=== PATIENT | female | born 1980 | race Caucasian/White ===

== ENCOUNTER 2017-08-20 16:51 | Inpatient (IN) | payer BC ==
[2017-08-20] MEDS ORDERED: Misoprostol 200 MCG TAB PR PRN (17:11)
[2017-08-20] MEDS ORDERED: Promethazine HCl 25 MG/ML VIAL IM PRN (17:11)
[2017-08-20] MEDS ORDERED: Ondansetron HCl/PF 4 MG/2 ML Vial IVP PRN (17:11)
[2017-08-20] MEDS ORDERED: Carboprost 250 MCG/ML AMP IM PRN (17:11)
[2017-08-20] MEDS ORDERED: Penicillin G Potassium 5 MILL.UNITS in Sodium Chloride 0.9% 100 ML IVPB STA (17:11)
[2017-08-20] MEDS ORDERED: Methylergonovine 0.2 MG/ML VIAL IM PRN (17:11)
[2017-08-20] MEDS ORDERED: Lidocaine 1% (PF) 30 ML VIAL SC PRN (17:11)
[2017-08-20] MEDS ORDERED: Diphenoxylate HCl/Atropine Tablet PO PRN ×2 (17:11)
[2017-08-20] MEDS ORDERED: HYDROcodone/Acetaminophen 5/325 mg Tablet PO PRN ×2 (17:11)
[2017-08-20] MEDS ORDERED: Ibuprofen 800 MG TAB PO PRN (17:11)
[2017-08-20 17:16] VITALS: BMI 26.6
[2017-08-20 17:43] LABS: Hemoglobin 13.1 g/dL (12.0-16.0); Mean Corpuscular HGB CONC 34.2 g/dL (32.0-36.0); Mean Corpuscular Volume 96.7 fl (81.0-99.0); Mean Platelet Volume 9.9 fL (7.4-10.4); Platelet Count 148 thou/uL (130-400); RBC Distribution Width 12.7 % (11.5-14.5); Red Blood Cell (RBC) Count 3.96 mill/uL (4.20-5.40); White Blood Cell (WBC) Count 11.1 thou/uL (4.8-10.8)
[2017-08-20] MEDS ORDERED: Penicillin G Potassium 5 MILL.UNITS VIAL ONE (17:49)
[2017-08-20] MEDS: LR / Pitocin 40 units/1000 ml 1,000 ML IV PRN ×2 (17:55→19:09)
[2017-08-20 18:23] LABS: HBSAg Index 0.18 S/CO (0-0.99); Hep B Surf Ag Non-Reactive S/CO (NonReactive); Syphilis Antibody Nonreactive (Nonreactive); Syphilis Antibody Index 0.05 S/CO (<1.00 Non-Reactive)
[2017-08-20] MEDS: Lactated Ringer's 1,000 ML IV SCH (19:09)
[2017-08-20] MEDS ORDERED: Penicillin G 2.5 MILL.units 2.5 MILL.UNITS in Premix Bag 1 BAG IVPB SCH (21:00)
[2017-08-20] MEDS ORDERED: Acetaminophen/Codeine 30-300mg Tablet PO PRN (22:59)
[2017-08-21] MEDS: Lactated Ringer's 1,000 ML IV SCH (02:39)
[2017-08-21] MEDS: Ibuprofen 800 MG TAB PO SCH ×2 (02:49→13:52)
[2017-08-21] MEDS ORDERED: FLU VACC QS2017-18 36 mo. & older 0.5 ML SYRINGE IM ONE (09:00)
[2017-08-21] MEDS ORDERED: Docusate Calcium (SURFAK) 240 MG CAP PO SCH (09:00)
--- NOTE | 2017-08-21 13:53 | PDOC.PP ---
Post Progress Note Post Day #: 1 Subjective: Doing well, no c/o, going well PO intake tolerated: yes Flatus: yes Ambulation: yes Vital Signs (12 hours) Temp Pulse Resp BP 08/21/17 12:00 98.3 F 89 20 08/21/17 11:55 98.3 F 89 20 103/68 08/21/17 08:30 97.6 F 87 20 97/76 08/21/17 08:00 97.6 F 87 20 08/21/17 05:30 98.1 F 62 16 103/57 L Weight Weight 146 lb - Physical Examination General: NAD Cardiovascular: no m/r/g, RRR Respiratory: clear to auscultation bilaterally, non-labored breathing Abdominal: + bowel sounds, lochia, no distention, appropriately TTP Extremities: negative homans (B) Result Diagrams: 08/20/17 17:20 Additional Labs: Post Labs Hep Bs Antigen Non-Reactive S/CO (NonReactive) 08/20/17 17:20 (1) Vaginal delivery Status: Acute - Assessment/Plan Doing well PP day #1. No concerns. Baby doing well. OK to D/C home at 24 hours post delivery.
[2017-08-21 17:30] VITALS: BP 108/63; TEMP 98.2
== END 2017-08-21 19:03 | disposition home or self-care (01) | DRG 775 ==
LOC: L&D/OP 16:51 → L&D-LIB 18:02 → 3SW 21:32
PROVIDERS: ADMIT Family Medicine; ATTEND Family Medicine
PROC: 0KQM0ZZ Repair Perineum Muscle, Open Approach (ICD-10-PCS; principal; 2017-08-20)
PROC: 10E0XZZ Delivery of Products of Conception, External Approach (ICD-10-PCS; 2017-08-20)
DX: O70.1 Second degree perineal laceration during delivery (principal); Z37.0 Single live birth; O48.0 Post-term pregnancy; Z3A.41 41 weeks gestation of pregnancy; O99.824 Streptococcus B carrier state complicating childbirth; O77.0 Labor and delivery complicated by meconium in amniotic fluid
CPT/HCPCS: 85027; 86780; 87340; 99285; J2540; J7050

== ENCOUNTER 2018-03-11 14:36 | Outpatient (CLI) | payer BC ==
--- NOTE | 2018-03-11 16:41 | ULT ---
THYROID ULTRASOUND: 03/11/18 INDICATIONS: Thyroid nodule. No comparison studies. There are numerous bilateral thyroid nodules. In the right lobe, there is a heterogeneous nodule in the superior right lobe, circumscribed, measuri ng 4 x 7 mm. In the mid right lobe, there is a partially cystic complex nodule measuring 0.6 x 0.7 x 1.0 cm. There is several other tiny nodules in the right lobe measuring in the 2 mm range. There is a large complex, partially cystic but septated and partially solid mass involving the left l obe of the thyroid measuring 4.0 x 2.6 x 2.5 cm. IMPRESSION: 1. There is a dominant complex partially cystic mass involving the left lobe of the thyroid. Thi s nodule is a TI-RADS 3 - which is mildly suspicious. FNA is recommended given its size greater than 2.5 cm. 2. Nonspecific nodules in the right lobe as described. POS: HARRIS
== END 2018-03-11 14:37 | disposition home or self-care (01) ==
LOC: BICULT 14:36
PROVIDERS: ATTEND Family Medicine
DX: E04.1 Nontoxic single thyroid nodule (principal); E07.9 Disorder of thyroid, unspecified; E04.2 Nontoxic multinodular goiter
CPT/HCPCS: 36415; 76536; 84439; 84443; 86376; 86800

== ENCOUNTER 2018-03-26 12:50 | Day surgery (SDC) | payer BC ==
[2018-03-25 13:52] VITALS: BMI 22.8
[2018-03-26] MEDS ORDERED: Lidocaine 1% PF 5 ML VIAL ONE (13:17)
[2018-03-26] MEDS ORDERED: Sodium Bicarbonate 2.5 MEQ/5 ML VIAL ONE (13:17)
[2018-03-26 13:48] VITALS: BP 131/81; TEMP 98.7
--- NOTE | 2018-03-26 15:58 | ULT ---
ULTRASOUND GUIDED LEFT THYROID NODULE FNA 03/26/18 INDICATION: Complex nodule within the left thyroid gland seen on a prior thyroid ultrasound dated 03/11/18. TECHNIQUE: Informed consent was obtained. Preprocedure ultrasound demonstrated the complex partially cystic and partially solid nodule within the left thyroid gland. The lesion measures 4.0 x 2.8 cm. The left aspe ct of the neck was prepped and draped in the usual sterile fashion. Buffered 1% lidocaine was adminis tered to overlying subcutaneous tissues and overlying strap muscles. Under ultrasound guidance, four separate 25 gauge spinal needles were guided down into the lesion, particularly within the inferior aspect of the lesion where there was a peripheral solid component. Four separate FNA samples were obt ained. The FNA samples upon attainment was given to the maintenance department technician for processing. The patient to lerated the FNA procedure without difficulty. Postprocedure images demonstrate no significant hematom a. IMPRESSION: Successful ultrasound guided fine needle aspiration of a complex left thyroid lobe lesion. POS: BANG
== END 2018-03-26 14:05 | disposition home or self-care (01) ==
LOC: ULT 12:50
PROVIDERS: ATTEND Specialist
PROC: 0GBG3ZX Excision of Left Thyroid Gland Lobe, Percutaneous Approach, Diagnostic (ICD-10-PCS; principal; 2018-03-26)
DX: E04.2 Nontoxic multinodular goiter (principal)
CPT/HCPCS: 10022; 76942; 88173; 88305; J2001

== ENCOUNTER 2018-10-08 07:57 | Outpatient (CLI) | payer BC ==
--- NOTE | 2018-10-08 08:32 | ULT ---
US Thyroid STANDARD HISTORY: Follow-up of thyroid nodules COMPARISON: 03/11/2018 study. FINDINGS: Real-time imaging of the right and left lobes of the gland were performed. The right lobe m easures 1.5 x 1.6 x 4.2 cm. The left lobe measures 2.4 x 2.7 x 5.3 cm. Bilateral thyroid nodules are identified. On the left side a complex cystic and solid nodule measures 2.3 x 3.4 cm. It is slightly smaller as c ompared to the prior examination when it measured 2.6 x 4 cm. There are several small small 3 to 4 mm complex right lobe thyroid nodules the largest is along the p osterior aspect of the gland measuring 7 mm in size. This is felt to be stable as compared to the prior exam. IMPRESSION: Essentially stable bilateral thyroid nodules.
== END 2018-10-08 07:58 | disposition home or self-care (01) ==
LOC: SCSULT 07:57
PROVIDERS: ATTEND Specialist
DX: E04.2 Nontoxic multinodular goiter (principal)
CPT/HCPCS: 76536